=== PATIENT | female | born 1995 | race Caucasian/White ===

== ENCOUNTER 2019-07-30 08:00 | Outpatient (CLI) | payer OTHER | END 2019-07-30 09:00 | disposition home or self-care (01) | LOC: SONOGRAMA 08:00 | DX: E04.1 Nontoxic single thyroid nodule (principal) ==

== ENCOUNTER 2022-06-10 09:38 | Outpatient (CLI) | payer OTHER | END 2022-06-10 09:43 | disposition home or self-care (01) | LOC: SONOGRAMA 09:38 | PROVIDERS: ATTEND Pathology Anatomic Pathology & Clinical Pathology | DX: E04.2 Nontoxic multinodular goiter (principal) ==

== ENCOUNTER 2024-09-17 14:32 | Outpatient (CLI) | payer OTHER | END 2024-09-17 14:37 | disposition home or self-care (01) | LOC: SONOGRAMA 14:32 | PROVIDERS: ATTEND Pathology Anatomic Pathology & Clinical Pathology | DX: D34 Benign neoplasm of thyroid gland (principal); E07.89 Other specified disorders of thyroid; E04.2 Nontoxic multinodular goiter ==